=== PATIENT | female | born 2000 | race Caucasian/White ===

== ENCOUNTER 2019-08-17 23:49 | Emergency (ER) | payer OTHER ==
[2019-08-18 00:45] VITALS: BP 125/81; PULSE 71; TEMP 98.4; BMI 20.7
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
[2019-08-18] MEDS ORDERED: PANTOPRAZOLE 40 MG TABLET (FP) ONE (01:21)
[2019-08-18] MEDS ORDERED: KETOROLAC TROMETHAMINE 30 MG/1 ML VIAL ONE (01:21)
[2019-08-18] MEDS ORDERED: KETOROLAC TROMETHAMINE 30 MG/1 ML VIAL IM ONE (01:22)
[2019-08-18] MEDS ORDERED: PANTOPRAZOLE 40 MG TABLET (FP) PO ONE (01:22)
--- NOTE | 2019-08-18 10:26 | EKG ---
Test Reason : Blood Pressure : / mmHG Vent. Rate : 061 BPM Atrial Rate : 061 BPM P-R Int : 156 ms QRS Dur : 078 ms QT Int : 420 ms P-R-T Axes : -09 073 038 degrees QTc Int : 422 ms NORMAL SINUS RHYTHM NORMAL ECG NO PREVIOUS ECGS AVAILABLE Confirmed by CHIQUIS WYNNE, SUYAPA ([id number]) on 08/18/2019 10:25:37 AM Referred By: SAMY CAMPBELL Confirmed By:SUYAPA SIM MD
== END 2019-08-18 01:33 | disposition home or self-care (01) ==
LOC: FER 23:49
PROC: 3E0233Z Introduction of Anti-inflammatory into Muscle, Percutaneous Approach (ICD-10-PCS; principal; 2019-08-17)
DX: M94.0 Chondrocostal junction syndrome [Tietze] (principal); K29.70 Gastritis, unspecified, without bleeding; Z88.8 Allergy status to other drugs, medicaments and biological substances
CPT/HCPCS: 93005; 99281-25